=== PATIENT | female | born 1985 | race American Indian/Alaskan Native ===

== ENCOUNTER 2021-09-06 14:06 | Emergency (ER) | payer SELFPAY ==
[2021-09-06] MEDS ORDERED: METOCLOPRAMIDE 10 MG/2 ML INJ IV ONE (15:34)
[2021-09-06] MEDS ORDERED: diphenhydrAMINE 50 MG/ML VIAL IV ONE (15:34)
[2021-09-06] MEDS ORDERED: PANTOPRAZOLE 40 MG INJ IV ONE (15:34)
[2021-09-06] MEDS ORDERED: SODIUM CHLORIDE 0.9% 1000 ML 1,000 ML IV ONE ×2 (15:34→16:45)
--- NOTE | 2021-09-06 15:36 | Event Note ---
ED Screening Note Date of service: 09/06/21 Time: 15:34 ED Screening Note: Patient presents to the ER today with complaints of nausea, vomiting and syncope. Patient states that she has been having severe nausea and vomiting for about 1 week. She states that she is unable to keep anything down. She has been having associated epigastric pain. She denies diarrhea. Her last menstrual cycle was the beginning of August. Today she felt generally weak while at home, she states that she then woke up off the floor and she noticed that she was shaking all over and she was concerned that she may have had either a seizure or syncopal episode and so called her friend to bring her to the ER. Patient states that she has had these episodes of nausea and vomiting epigastric pain before. At one point he told it was related to pancreatitis but this was few years ago and she has since stopped drinking. She has not followed up with GI. This initial assessment/diagnostic orders/clinical plan/treatment(s) is/are subject to change based on patients health status, clinical progression and re-assessment by fellow clinical providers in the ED. Further treatment and workup at subsequent clinical providers discretion. Patient/guardian urged not to elope from the ED as their condition may be serious if not clinically assessed and managed. Initial orders include: Labs, EKG, IV fluids
[2021-09-06 16:07] LABS: Basophils # (Auto) 0.1 K/mm3 (0.0-0.1); Basophils % (Auto) 0.5 % (0.0-1.8); Eosinophils # (Auto) 0.1 K/mm3 (0.0-0.4); Eosinophils % (Auto) 1.2 % (0.0-4.3); Hematocrit 42.6 % (30.3-42.9); Hemoglobin 13.4 gm/dl (10.1-14.3); Lymphocytes # (Auto) 2.7 K/mm3 (1.2-5.4); Mean Corpuscular HGB Conc 31 % (30-34); Mean Corpuscular Volume 82 fl (79-97); Monocytes # (Auto) 0.8 K/mm3 (0.0-0.8); Monocytes % (Auto) 6.6 % (0.0-7.3); Platelet Count 367 K/mm3 (140-440); Red Cell Distribution Width 15.2 % (13.2-15.2)
[2021-09-06 16:37] LABS: Alanine Aminotransferase 8 units/L (7-56); Albumin 4.5 g/dL (3.9-5); Blood Urea Nitrogen 12 mg/dL (7-17); Hemolysis Index 3
[2021-09-06 16:44] LABS: BUN/Creatinine Ratio 17
[2021-09-06] MEDS ORDERED: HALOPERIDOL LACTATE 5 MG/1 ML INJ IV STA (16:46)
[2021-09-06 16:49] LABS: Free T4 (Free Thyroxine) 2.2 ng/dL (0.76-1.46)
--- NOTE | 2021-09-06 16:50 | Emergency Department Report ---
ED Syncope HPI - General Chief Complaint: Syncope Stated Complaint: ABDOMINAL PAIN/VOMITING Time Seen by Provider: 09/06/21 16:29 Source: patient Exam Limitations: no limitations - History of Present Illness Initial Comments: Chief complaint: "I passed out. I have not been able to eat for over 2 weeks." HPI: This is a 35-year-old female with history of marijuana dependence, al coholic pancreatitis and cannabinoid hyperemesis syndrome hyperthyroidism who presents with syncope. Patient has had persistent nausea vomiting for the past 2 weeks. She has epigastric discomfort. She passed out at home. She wants to make sure that everything is okay. She was evaluated outside hospital for similar symptoms 2 months ago. She recently moved from [place]. Her physician told her that her symptoms are related to "too much weed". LMP 08/13/2021. She does not have sex with men. She does not use oral contraception. No possibility of . Last drink of alcohol 8 to 9 months ago. Medication: Methimazole 3 times a day. Timing/Prior Episodes: no prior history Loss of Consciousness: brief (seconds) Current Symptoms: back to normal - Related Data Allergies/Adverse Reactions: Allergies No Known Allergies Allergy (Verified 09/06/21 14:55) Home Medications: Ambulatory Orders Ondansetron [Zofran Odt] 4 mg PO Q8HR PRN #10 tab.rapdis 09/06/21 ED Review of Systems ROS: Stated complaint: ABDOMINAL PAIN/VOMITING Other details as noted in HPI Comment: All other systems reviewed and negative Constitutional: other (8 to 9 pound weight loss poor appetite due to persistent vomiting). denies: chills, fever, malaise Gastrointestinal: nausea, vomiting, other (Epigastric discomfort). denies: diarrhea ED Past Medical Hx - Past Medical History Previous Medical History?: Yes Additional medical history: hyperthyroid. pancreatitis - Surgical History Past Surgical History?: No - Social History Smoking Status: Never Smoker Substance Use Type: Alcohol, Marijuana - Medications Home Medications: Home Medications Medication Instructions Recorded Confirmed Last Taken Type Ondansetron [Zofran Odt] 4 mg PO Q8HR PRN #10 tab.rapdis 09/06/21 Unknown Rx ED Physical Exam - General Limitations: No Limitations General appearance: alert, in no apparent distress - Head Head exam: Present: atraumatic, normocephalic - Eye Eye exam: Present: normal appearance - ENT ENT exam: Present: mucous membranes moist - Neck Neck exam: Present: normal inspection, full ROM - Respiratory Respiratory exam: Present: normal lung sounds bilaterally. Absent: respiratory distress, wheezes, rales, rhonchi - Cardiovascular Cardiovascular Exam: Present: regular rate, normal rhythm, normal heart sounds. Absent: systolic murmur, diastolic murmur, rubs, gallop - GI/Abdominal GI/Abdominal exam: Present: soft, normal bowel sounds. Absent: distended, tenderness, guarding, rebound - Extremities Exam Extremities exam: Present: normal inspection - Neurological Exam Neurological exam: Present: alert, oriented X3 - Psychiatric Psychiatric exam: Present: normal affect, normal mood - Skin Skin exam: Present: warm, dry, intact, normal color. Absent: rash ED Course Vital Signs 09/06/21 09/06/21 14:54 16:37 Temperature 98.4 F Pulse Rate 124 H Respiratory 16 Rate Blood Pressure 114/84 [Right] O2 Sat by Pulse 100 99 Oximetry ED Medical Decision Making - Lab Data Result diagrams: 09/06/21 15:30 09/06/21 15:30 Laboratory Results - last 24 hr 09/06/21 09/06/21 09/06/21 15:30 15:30 15:30 WBC 11.6 H RBC 5.20 H Hgb 13.4 Hct 42.6 MCV 82 MCH 26 L MCHC 31 RDW 15.2 Plt Count 367 Lymph % (Auto) 23.0 [place] % (Auto) 6.6 Eos % (Auto) 1.2 Baso % (Auto) 0.5 Lymph # (Auto) 2.7 [place] # (Auto) 0.8 Eos # (Auto) 0.1 Baso # (Auto) 0.1 Seg Neutrophils % 68.7 Seg Neutrophils # 8.0 H Sodium 135 L Potassium 4.7 Chloride 95.7 L Carbon Dioxide 22 Anion Gap 22 BUN 12 Creatinine 0.7 Estimated GFR > 60 BUN/Creatinine Ratio 17 Glucose 79 Calcium 10.0 Magnesium 1.80 Total Bilirubin 0.40 AST 14 ALT 8 Alkaline Phosphatase 73 Total Protein 8.3 H Albumin 4.5 Albumin/Globulin Ratio 1.2 Lipase 19 HCG, Qual Negative - EKG Data -: EKG Interpreted by Ut EKG shows normal: sinus rhythm, axis, intervals, QRS complexes, ST-T waves Rate: normal - EKG Data Interpretation: normal EKG 09/06/21 16:48 EKG obtained 1456 EKG interpreted by me Normal sinus rhythm Rate 97 bpm normal axis normal intervals no ST elevation enlarged P waves - Medical Decision Making 1. Orthostatic postural syncope due to hypovolemia with 2 weeks of persistent nausea vomiting 2. Cannabinoid hyperemesis syndrome: Last use of marijuana last week. 3. Hyperthyroidism no indication of thyroid storm. Treatment emergency department included 2 L normal saline bolus, IV Reglan, IV Benadryl, IV Haldol Patient symptoms markedly improved. Recommended marijuana cessation use. Prescribed Zofran. I reviewed labs CBC unremarkable chemistry within normal limits, TSH low 0.005 hCG negative T4 is high at 2.2 Critical care attestation.: If time is entered above; I have spent that time in minutes in the direct care of this critically ill patient, excluding procedure time. ED Disposition Clinical Impression: Cannabinoid hyperemesis syndrome, Syncope due to orthostatic hypotension, Hyperthyroidism Disposition: 01 HOME / SELF CARE / HOMELESS Is pt being admited?: No Does the pt Need Aspirin: No Condition: Stable Instructions: Syncope (ED), Cannabis Use Disorder Prescriptions: Ondansetron [Zofran Odt] 4 mg PO Q8HR PRN #10 tab.rapdis PRN Reason: Nausea Referrals: ANASTACIO TORO MD [Staff Physician] - 3-5 Days
[2021-09-06 18:16] VITALS: BP 121/80
--- NOTE | 2021-09-07 10:24 | Electrocardiograph Report ---
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
== END 2021-09-06 18:16 | disposition home or self-care (01) ==
LOC: ED 14:06
DX: I95.1 Orthostatic hypotension (principal); R11.2 Nausea with vomiting, unspecified; E05.90 Thyrotoxicosis, unspecified without thyrotoxic crisis or storm; F12.90 Cannabis use, unspecified, uncomplicated; Z72.89 Other problems related to lifestyle
CPT/HCPCS: 36415; 80053; 83690; 83735; 84439; 84443; 84484; 84703; 85025; 93005; 93010; 96361; 96374; 96375; 99283; C9113; J1630; J7030; Q0162

== ENCOUNTER 2022-04-01 12:13 | Emergency (ER) | payer SELFPAY ==
--- NOTE | 2022-04-01 13:00 | Emergency Department Report ---
Blank Doc - Documentation Documentation: 28-year-old female that presents with abdominal pain with nausea vomiting. 1- This is a initial triage assessment/medical screening only. Full assessment and work-up will be completed once the patient is in proper hospital gown, ED bed and in a private room setting. This initial assessment/diagnostic orders/clinical plan/ treatment(s) is/are subject to change based on pt's health status, clinical progression and re-assessment by fellow clinical providers in the ED. Further treatment and workup at subsequent clinical providers discretion. Patient/guardians urged not to elope from ED as their condition may be serious if not clinically assessed and managed. 2-labs 3-UA The patient was evaluated in the emergency department for symptoms described in the history of present illness. He/she was evaluated in the context of the global COVID-19 pandemic, which necessitated consideration that the patient might be at risk for infection with the virus that causes COVID-19. Institutional protocols and algorithms that pertain to the evaluation of pa tients at risk for COVID-19 are in a state of rapid change based on information released by regulatory bodies including the CDC and federal and state organizations. These policies and algorithms were followed during the patient's care in the emergency department. Please note that these policies, procedures and recommendations changed on a rapid basis.
[2022-04-01 13:07] VITALS: BP 113/80
[2022-04-01 13:52] LABS: Basophils # (Auto) 0.1 K/mm3 (0.0-0.1); Basophils % (Auto) 0.5 % (0.0-1.8); Eosinophils # (Auto) 0.1 K/mm3 (0.0-0.4); Eosinophils % (Auto) 0.6 % (0.0-4.3); Hematocrit 40.1 % (30.3-42.9); Hemoglobin 12.6 gm/dl (10.1-14.3); Lymphocytes # (Auto) 2.1 K/mm3 (1.2-5.4); Mean Corpuscular HGB Conc 32 % (30-34); Mean Corpuscular Volume 75 fl (79-97); Monocytes # (Auto) 0.7 K/mm3 (0.0-0.8); Monocytes % (Auto) 6.5 % (0.0-7.3); Platelet Count 480 K/mm3 (140-440); Red Blood Count 5.32 M/mm3 (3.65-5.03)
[2022-04-01 13:55] LABS: Red Cell Distribution Width 20.2 % (13.2-15.2)
[2022-04-01 14:08] LABS: Alanine Aminotransferase 12 units/L (7-56); Albumin 4.6 g/dL (3.9-5); Blood Urea Nitrogen 9 mg/dL (7-17); Calcium 9.6 mg/dL (8.4-10.2); Hemolysis Index 3
[2022-04-01 14:16] LABS: BUN/Creatinine Ratio 13
[2022-04-01] MEDS ORDERED: SODIUM CHLORIDE 0.9% 1000 ML 1,000 ML IV ONE (15:43)
[2022-04-01] MEDS ORDERED: MORPHINE 4 MG/1 ML INJ IV ONE (15:43)
[2022-04-01] MEDS ORDERED: ONDANSETRON 4 MG/2 ML INJ IV ONE (15:43)
[2022-04-01 17:15] LABS: Color,Urine Yellow (Yellow)
[2022-04-01 17:17] LABS: Mucus,Urine 3+ /HPF
--- NOTE | 2022-04-02 08:30 | Electrocardiograph Report ---
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
== END 2022-04-02 10:40 | disposition left against medical advice (07) ==
LOC: ED 12:13
DX: R10.9 Unspecified abdominal pain (principal); Z53.21 Procedure and treatment not carried out due to patient leaving prior to being seen by health care provider
CPT/HCPCS: 36415; 80053; 81001; 83690; 84703; 85025; 87086; 93005; J2270; J2405; J7030